=== PATIENT | male | born 1980 | race Two or more races ===

== ENCOUNTER 2017-04-24 17:32 | Emergency (ER) | payer MEDICAID ==
[~2017-04-24] VITALS: Ht 172.7 cm; Wt 101.0 kg
[2017-04-24 18:07] VITALS: Ht 172.7 cm; Wt 101.0 kg
[2017-04-24] MEDS ORDERED: KETOROLAC 30 MG INJ IM STA (19:15)
[2017-04-24] MEDS ORDERED: ONDANSETRON (ODT) 4 MG TAB ODT STA (19:15)
--- NOTE | 2017-04-24 19:36 | ERD ---
ER Documentation Chief Complaint Date/Time DATE: 04/24/17 TIME: 19:31 Chief Complaint LEFT FALNK PAIN , HX OF KIDNEY STONES HPI Patient is a 36-year-old male with past medical history of nephrolithiasis who presents to the emergency department with sudden onset of left severe flank pain 2 hours. Patient does report chills, patient denies any fevers. Patient denies any nausea or vomiting. Patient did not reports dysuria and hematuria. Patient denies any frequency, urgency or hesitancy patient states in the past his kidney stones have with medication only. Patient denies needing to have lithotripsy or any surgical procedures. Patient denies any chest pain, shortness of breath, LOC at this time. ROS All systems reviewed and are negative except as per history of present illness. Medications Home Meds Active Scripts Ondansetron (Ondansetron Odt) 4 Mg Tab.rapdis, 4 MG PO Q6H Y for NAUSEA AND/OR VOMITING, #10 TAB Prov:SARAI YOON-C 04/24/17 Hydrocodone/Acetaminophen ([place] 5-325 Tablet) 1 Each Tablet, 1 TAB PO Q6H Y for PAIN, #7 TAB Prov:SARAI YOON-C 04/24/17 Ibuprofen* (Motrin*) 600 Mg Tab, 600 MG PO Q6, #30 TAB Prov:SARAI YOON-C 04/24/17 Tamsulosin Hcl* (Flomax*) 0.4 Mg Cap.er.24h, 0.4 MG PO BID, #30 CAP Prov:SARAI YOON-C 04/24/17 Reported Medications [None] No Conflict Check 06/30/10 Allergies Allergies: Coded Allergies: No Known Allergies (Verified Allergy, Mild, 06/30/10) PMhx/Soc Medical and Surgical Hx: pt denies Surgical Hx History of Surgery: No Anesthesia Reaction: No Hx Neurological Disorder: No Hx Respiratory Disorders: No Hx Cardiac Disorders: No Hx Psychiatric Problems: No Hx Miscellaneous Medical Probl: Yes (Kidney Stones) Hx Alcohol Use: No Hx Substance Use: No Hx Tobacco Use: No Smoking Status: Never smoker Physical Exam Vitals Vital Signs Date Time Temp Pulse Resp B/P Pulse Ox O2 Delivery O2 Flow Rate FiO2 04/24/17 18:07 98.4 88 19 138/81 98 Physical Exam GENERAL: Well-developed, well-nourished male. Appears in no acute distress. HEAD: Normocephalic, atraumatic. EYES: Pupils are equally reactive bilaterally. EOMs grossly intact. No conjunctival erythema. ENT: Moist mucous membranes. No uvula deviation. No kissing tonsils. NECK: Supple. No meningismus. Normal range of motion of the neck. LUNG: Clear to auscultation bilaterally. No rhonchi, wheezing, rales or coarse breath sounds. HEART: Regular rate and rhythm. No murmurs, rubs or gallops. ABDOMEN: No scars, ecchymosis or rashes noted. Soft, nontender, and nondistended. Positive bowel sounds in all four quadrants. No rebound tenderness , no guarding. (-) McBurney's point tenderness. L sided CVA tenderness. BACK: No midline tenderness. EXTREMITIES: Equal pulses bilaterally. No peripheral clubbing, cyanosis or edema. No unilateral leg swelling. NEUROLOGIC: Alert and oriented. Moving all four extremities without any difficulty. Normal speech. Steady gait. SKIN: Normal color. Warm and dry. No rashes or lesions. Result Diagram: 04/24/17192704/24/171927 Results 24 hrs Laboratory Tests Test 04/24/17 19:28 White Blood Count 12.910^3/ul Red Blood Count 4.9410^6/ul Hemoglobin 14.2g/dl Hematocrit 41.4% Mean Corpuscular Volume 83.8fl Mean Corpuscular Hemoglobin 28.7pg Mean Corpuscular Hemoglobin Concent 34.3g/dl Red Cell Distribution Width 13.2% Platelet Count 11712^3/UL Mean Platelet Volume 10.2fl Neutrophils % 81.6% Lymphocytes % 11.1% Monocytes % 6.0% Eosinophils % 0.5% Basophils % 0.3% Nucleated Red Blood Cells % 0.0/100WBC Neutrophils # 10.610^3/ul Lymphocytes # 1.410^3/ul Monocytes # 0.810^3/ul Eosinophils # 0.110^3/ul Basophils # 0.010^3/ul Nucleated Red Blood Cells # 0.010^3/ul Urine Color LT. YELLOW Urine Clarity CLEAR Urine pH 6.0 Urine Specific [place] 1.025 Urine Ketones NEGATIVE Urine Nitrite NEGATIVE Urine Bilirubin NEGATIVE Urine Urobilinogen 0.2 E.U./dL Urine Leukocyte Esterase NEGATIVE Urine Microscopic RBC 10-25/HPF Urine Microscopic WBC 0-2/HPF Urine Bacteria FEW Urine Hemoglobin 2+ Urine Glucose NEGATIVE% Urine Total Protein NEGATIVE Sodium Level 140mmol/L Potassium Level 4.1mmol/L Chloride Level 105mmol/L Carbon Dioxide Level 25mmol/L Anion Gap 14 Blood Urea Nitrogen 13mg/dl Creatinine 0.81mg/dl Glucose Level 93mg/dl Calcium Level 9.4mg/dl Total Bilirubin 0.3mg/dl Direct Bilirubin 0.00mg/dl Indirect Bilirubin 0.3mg/dl Aspartate Amino Transf (AST/SGOT) 27IU/L Alanine Aminotransferase (ALT/SGPT) 37IU/L Alkaline Phosphatase 94IU/L Total Protein 8.4g/dl Albumin 5.2g/dl Globulin 3.20g/dl Albumin/Globulin Ratio 1.62 Current Medications Medications (Trade) Dose Ordered Sig/Merrill Route PRN Reason Start Time Stop Time Status Last Admin Dose Admin Ketorolac Tromethamine (Toradol) 30 mg ONCE STAT IM 04/24/17 19:15 04/24/17 19:17 DC 04/24/17 19:26 Ondansetron HCl (Zofran Odt) 8 mg ONCE STAT ODT 04/24/17 19:15 04/24/17 19:17 DC 04/24/17 19:26 Procedures/MDM ED COURSE: The patient was stable throughout ED course. I kept the patient and/or family informed of laboratory and diagnostic imaging results throughout the ED course. MEDICATIONS GIVEN: Toradol IM Patient tolerated medication well with no adverse reactions. Patient reported improvement in pain. MEDICAL DECISION MAKING: This is a 36-year-old male with history of nephrolithiasis who presents with left-sided flank pain dysuria and hematuria 2 hours. Vital signs were reviewed. Patient was afebrile. UA showed []. Given that the patient does report a history of kidney stones in the past and denied needing to have any surgical interventions completed, CT imaging was not obtained at this time. CBC showed no evidence of severe anemia. WBC count was noted to be 12.9. CMP showed no evidence of electrolyte abnormalities, severe acidosis, alkalosis, renal failure, or liver disease. BUN and Cr were within normal limits. UA showed 2+ hemoglobin, 10-25 WBC. Given these findings, the patient's presentation is most consistent with nephrolithiasis. I have a much lower clinical concern for UTI, pyelonephritis, appendicitis, diverticulitis, constipation, urethritis. PRESCRIPTIONS: [place] Ibuprofen Tamsulosin. Zofran DISCHARGE: At this time, patient is stable for discharge and outpatient management. Patient advised to drink plenty of fluids. Patient given a copy of all blood work obtained today. Patient advised to follow-up with the urologist on an outpatient basis. See referral list. I have instructed the patient to follow- up with his/her primary care physician in 1-2 days. If symptoms persist, patient may need to see a specialist for further examinations and testing. I have instructed the patient to promptly return to the ER at any time for any new or worsening symptoms including increased increased pain, fever, nausea, vomiting, urinary changes or weakness. The patient and/or family expressed understanding of and agreement with this plan. All questions were answered. Home care instructions were provided. Departure Diagnosis: Primary Impression: Nephrolithiasis Condition: Stable Patient Instructions: Kidney Stone (Urine) Referrals: MIREYA GUEVARA MD,YNES MARKHAM,SUPRIYA BARRAZA,FANNIE CERVANTES [facility] YOU HAVE RECEIVED A MEDICAL SCREENING EXAM AND THE RESULTS INDICATE THAT YOU DO NOT HAVE A CONDITION THAT REQUIRES URGENT TREATMENT IN THE EMERGENCY DEPARTMENT. FURTHER EVALUATION AND TREATMENT OF YOUR CONDITION CAN WAIT UNTIL YOU ARE SEEN IN YOUR DOCTORS OFFICE WITHIN THE NEXT 1-2 DAYS. IT IS YOUR RESPONSIBILITY TO MAKE AN APPOINTMENT FOR FOLOW-UP CARE. IF YOU HAVE A PRIMARY DOCTOR --you should call your primary doctor and schedule an appointment IF YOU DO NOT HAVE A PRIMARY DOCTOR YOU CAN CALL OUR PHYSICIAN REFERRAL HOTLINE AT IF YOU CAN NOT AFFORD TO SEE A PHYSICIAN YOU CAN CHOSE FROM THE FOLLOWING [facility] CLINICS [facility] [address] [facility] [address] [facility] [address] [facility] [address] [facility] [address] [facility]. [facility]. [address] [facility]. [facility] YOU HAVE RECEIVED A MEDICAL SCREENING EXAM AND THE RESULTS INDICATE THAT YOU DO NOT HAVE A CONDITION THAT REQUIRES URGENT TREATMENT IN THE EMERGENCY DEPARTMENT. FURTHER EVALUATION AND TREATMENT OF YOUR CONDITION CAN WAIT UNTIL YOU ARE SEEN IN YOUR DOCTORS OFFICE WITHIN THE NEXT 1-2 DAYS. IT IS YOUR RESPONSIBILITY TO MAKE AN APPOINTMENT FOR FOLOW-UP CARE. IF YOU HAVE A PRIMARY DOCTOR --you should call your primary doctor and schedule and appointment IF YOU DO NOT HAVE A PRIMARY DOCTOR YOU CAN CALL OUR PHYSICIAN REFERRAL HOTLINE AT . IF YOU CAN NOT AFFORD TO SEE A PHYSICIAN YOU CAN CHOSE FROM THE FOLLOWING [facility]: [facility] [address] [place] [address] [facility] [address] [place] [address] [facility] [address] [place] [address] Additional Instructions: Call your primary care doctor TOMORROW for an appointment during the next 1-2 days.See the doctor sooner or return here if your condition worsens before your appointment time. Drink plenty of fluids. Take medication as prescribed. Follow-up with the urologist in the next 1-2 days. See referral information. SARAI YOON PA-C Apr 24, 2017 19:36
[2017-04-24 19:37] LABS: ADD SCAN DIFF NO
[2017-04-24 19:41] LABS: BASOPHILS % 0.3 % (0.0-2.0); EOSINOPHILS # 0.1 10^3/ul (0.0-0.5); EOSINOPHILS % 0.5 % (0.0-7.0); HEMATOCRIT 41.4 % (42.0-52.0); HEMOGLOBIN 14.2 g/dl (14.0-18.0); LYMPHOCYTES # 1.4 10^3/ul (0.8-2.9); LYMPHOCYTES % 11.1 % (15.0-51.0); MEAN CORPUSCULAR HEMOGLOBIN 28.7 pg (29.0-33.0); MEAN CORPUSCULAR HGB CONC 34.3 g/dl (32.0-37.0); MEAN CORPUSCULAR VOLUME 83.8 fl (82.0-101.0); MEAN PLATELET VOLUME 10.2 fl (7.4-10.4); MONOCYTE # 0.8 10^3/ul (0.3-0.9); NEUTROPHIL # 10.6 10^3/ul (1.6-7.5); NEUTROPHILS % 81.6 % (39.0-77.0); PLATELET COUNT 287 10^3/UL (140-415); RED BLOOD COUNT 4.94 10^6/ul (4.70-6.10); RED CELL DISTRIBUTION WIDTH 13.2 % (11.5-14.5); WHITE BLOOD COUNT 12.9 10^3/ul (4.8-10.8)
[2017-04-24 19:46] LABS: ADD UMIC YES; URINE BILIRUBIN (Dip) NEGATIVE (NEGATIVE); URINE BLOOD (Dip) 2+ (NEGATIVE); URINE COLOR LT. YELLOW (YELLOW); URINE GLUCOSE (Dip) NEGATIVE (NEGATIVE); URINE KETONES (Dip) NEGATIVE (NEGATIVE); URINE LEUKOCYTE ESTERASE (Dip) NEGATIVE (NEGATIVE); URINE NITRITE (Dip) NEGATIVE (NEGATIVE); URINE TOTAL PROTEIN (Dip) NEGATIVE (NEGATIVE); URINE UROBILINOGEN (Dip) 0.2 E.U./dL (0.1-1.0)
[2017-04-24 19:49] LABS: ALBUMIN/GLOBULIN RATIO 1.62
[2017-04-24 19:59] LABS: ALBUMIN 5.2 g/dl (3.3-4.9); BILIRUBIN,INDIRECT 0.3 mg/dl (0-1.1); BILIRUBIN,TOTAL 0.3 mg/dl (0.2-1.3); CALCIUM 9.4 mg/dl (8.4-10.2); CREATININE 0.81 mg/dl (0.61-1.24); POTASSIUM 4.1 mmol/L (3.5-5.1); TOTAL PROTEIN 8.4 g/dl (6.1-8.1)
[2017-04-24 20:13] LABS: BACTERIA,URINE FEW
[2017-04-24] MEDS ORDERED: IBUP-1542 PO (20:54)
[2017-04-24] MEDS ORDERED: TAMS-14 PO (20:54)
[2017-04-24] MEDS ORDERED: HYDR-906 PO (20:55)
[2017-04-24] MEDS ORDERED: ONDA4TAB14 PO (20:55)
[2017-04-24 21:11] VITALS: BP 134/69; PULSE 77; RESP 16; TEMP 98.6
== END 2017-04-24 21:13 | disposition home or self-care (01) ==
LOC: FTE 17:32
DX: N20.0 Calculus of kidney (principal)
CPT/HCPCS: 80053; 81001; 85025; 96372; J1885; Z7502; Z7610

== ENCOUNTER 2017-04-25 01:02 | Emergency (ER) | payer SELFPAY ==
[~2017-04-25] VITALS: Ht 172.7 cm; Wt 101.8 kg
[~2017-04-25 01:02] MED LIST: HYDR-906 PO; IBUP-1542 PO; ONDA4TAB14 PO; TAMS-14 PO
[2017-04-25 01:05] VITALS: Ht 172.7 cm; Wt 101.8 kg
== END 2017-04-25 01:10 | disposition left against medical advice (07) ==
LOC: E/R 01:02
DX: Z53.21 Procedure and treatment not carried out due to patient leaving prior to being seen by health care provider (principal)

== ENCOUNTER 2018-08-16 12:01 | Emergency (ER) | END 2018-08-16 12:54 | disposition home or self-care (01) ==

== ENCOUNTER 2018-12-26 11:53 | Emergency (ER) | payer MEDICAID, OTHER ==
[~2018-12-26] VITALS: Ht 167.6 cm; Wt 104.0 kg
[~2018-12-26 11:53] MED LIST changes: +BEN25 PO; +HYDR-4011 PO; -HYDR-906 PO; +PRED20TA PO
[2018-12-26 11:58] VITALS: Ht 167.6 cm; Wt 104.0 kg
[2018-12-26] MEDS ORDERED: AZIT250T PO (12:18)
[2018-12-26] MEDS ORDERED: ALBU18HF INHALATION (12:18)
[2018-12-26] MEDS ORDERED: BENZ-6 PO (12:18)
[2018-12-26 12:38] VITALS: BP 122/65; PULSE 72; RESP 19
--- NOTE | 2018-12-26 16:18 | ERD ---
ER Documentation Chief Complaint Chief Complaint COUGH WITH MILD WHEEZING X 1 MONTH HPI 38-year-old male patient with no significant past medical history presents to ED complaining of cough with wheezing that started imminently for 1 month. Patient reports that he has not taking medications. Denies any fever, chills, nausea, vomiting, chest pain, abdominal pain. Denies any recent traveling. Denies any recent traveling. ROS All systems reviewed and are negative except as per history of present illness. Medications Home Meds Active Scripts Albuterol Sulfate* (Ventolin HFA*) 18 Gm Hfa.aer.ad, 2 PUFF INHALATION Q4H, #1 INHALER Prov:FLAKITO JIMENEZ PA-C 12/26/18 Benzonatate* (Tessalon Perle*) 100 Mg Capsule, 100 MG PO Q8H PRN for COUGH, #20 CAP Prov:FLAKITO JIMENEZ PA-C 12/26/18 Azithromycin* (Zithromax*) 250 Mg Tablet, 250 MG PO .ZPACK DIRECTED, #6 TAB TAKE 500 MG (2 TABS) THE FIRST DAY THEN 250 MG (1 TAB) DAYS 2-5 Prov:FLAKITO JIMENEZ PA-C 12/26/18 Diphenhydramine Hcl* (Benadryl*) 25 Mg Cap, 25 MG PO Q6, #30 CAP Prov:FLAKITO JIMENEZ PA-C 08/16/18 Prednisone* (Prednisone*) 20 Mg Tab, 40 MG PO DAILY for 4 Days, TAB Prov:FLAKITO JIMENEZC 08/16/18 Ondansetron (Ondansetron Odt) 4 Mg Tab.rapdis, 4 MG PO Q6H PRN for NAUSEA AND/OR VOMITING, #10 TAB Prov:SARAI YOON-C 04/24/17 Hydrocodone/Acetaminophen ([place] 5-325 Tablet) 1 Each Tablet, 1 TAB PO Q6H PRN for PAIN, #7 TAB Prov:SARAI YOON-C 04/24/17 Ibuprofen* (Motrin*) 600 Mg Tab, 600 MG PO Q6, #30 TAB Prov:SARAI YOON-C 04/24/17 Tamsulosin Hcl* (Flomax*) 0.4 Mg Cap.er.24h, 0.4 MG PO BID, #30 CAP Prov:SARAI YOON PA-C 04/24/17 Reported Medications [None] No Conflict Check 06/30/10 Allergies Allergies: Coded Allergies: No Known Allergies (Verified Allergy, Mild, 12/26/18) PMhx/Soc Medical and Surgical Hx: pt denies Surgical Hx History of Surgery: No Anesthesia Reaction: No Hx Neurological Disorder: No Hx Respiratory Disorders: No Hx Cardiac Disorders: No Hx Psychiatric Problems: No Hx Miscellaneous Medical Probl: Yes (Kidney Stones) Hx Alcohol Use: No Hx Substance Use: No Hx Tobacco Use: No Smoking Status: Never smoker FmHx Family History: No diabetes, No coronary disease Physical Exam Vitals Vital Signs Date Temp Pulse Resp B/P (MAP) Pulse Ox O2 O2 Flow FiO2 Time Delivery Rate 12/26/18 98.4 72 19 122/65 100 Room Air 12:38 (84) 12/26/18 98.5 92 20 145/69 96 11:58 (94) Physical Exam Const: Bid-szv-wxlvzbmjg, well-nourished. In no acute distress. Head: Atraumatic, normocephalic Eyes: Normal Conjunctiva without injection. No purulent discharge. PERRL. EOMI ENT: Normal external ear. Ear canal without erythema. Tympanic membrane pearly ragland without effusion or bulging. Nasal canal clear with normal turbinates. Moist oropharynx without tonsillar exudates. Non-erythematous pharynx. Uvula midline. No drooling. No trismus. Neck: Full range of motion. No meningismus. No cervical lymphadenopathy. Resp: Clear to auscultation bilaterally. No wheezing, rhonchi, rales, or scrap sorter ckles. No accessory muscle use. No retractions. Cardio: Regular rate and rhythm. No murmurs, rubs or gallops. Abd: Soft, non tender, non distended. Normal bowel sounds. No palpable masses. No rebound tenderness. No guarding. Skin: No petechiae or rashes Back: No midline tenderness. No CVA tenderness. Ext: No cyanosis, or edema. Neur: Awake and alert. Psych: Normal Mood and Affect Procedures/MDM 38-year-old male patient with no significant past medical history presents to the ED complaining of cough. Patient is afebrile and nontoxic-appearing. Chest x-ray was offered to patient at this time however he stated that he wanted to have a trial of medications. This patient presents to the ED with symptoms consistent with bronchitis. Patient's physical exam include lungs which were clear to auscultation and a normal pulse oximetry. There is a low suspicion for pneumonia, pneumothorax, mononucleosis, pulmonary embolism, epiglottitis, otitis media, otitis externa, viral/strep pharyngitis, sinusitis, myocarditis, pericarditis, endocarditis, peritonsillar abscess, mastoiditis, retropharyngeal abscess, meningitis, sepsis, acute abdomen or other emergent conditions. Fluids, rest, and symptomatic treatment are recommended for the management of patient's symptoms. Diagnosis: Cough Discharge medications: Ventolin, Tessalon Perles, Zithromax Follow up with primary care physician in 1-2 days. Instructed patient to return to the ED sooner for any worsening symptoms. Patient's questions were answered. Patient is hemodynamically stable. Patient understood and agreed with discharge plan. Patient discharged stable. Disclaimer: Inadvertent spelling and grammatical errors are likely due to EHR/dictation software use and do not reflect on the overall quality of patient care. Also, please note that the electronic time recorded on this note does not necessarily reflect the actual time of the patient encounter. Departure Diagnosis: Primary Impression: Cough Condition: Stable Patient Instructions: Bronchitis, Antiobiotic Treatment (Adult) Referrals: [facility] YOU HAVE RECEIVED A MEDICAL SCREENING EXAM AND THE RESULTS INDICATE THAT YOU DO NOT HAVE A CONDITION THAT REQUIRES URGENT TREATMENT IN THE EMERGENCY DEPARTMENT. FURTHER EVALUATION AND TREATMENT OF YOUR CONDITION CAN WAIT UNTIL YOU ARE SEEN IN YOUR DOCTORS OFFICE WITHIN THE NEXT 1-2 DAYS. IT IS YOUR RESPONSIBILITY TO M OLGA AN APPOINTMENT FOR FOL- CARE. IF YOU HAVE A PRIMARY DOCTOR --you should call your primary doctor and schedule an appointment IF YOU DO NOT HAVE A PRIMARY DOCTOR YOU CAN CALL OUR PHYSICIAN REFERRAL HOTLINE AT IF YOU CAN NOT AFFORD TO SEE A PHYSICIAN YOU CAN CHOSE FROM THE FOLLOWING [facility] CLINICS [facility] [address] [facility] [address] [facility] [address] [facility] [address] [facility] [address] [facility]. [address] [facility]. [facility] YOU HAVE RECEIVED A MEDICAL SCREENING EXAM AND THE RESULTS INDICATE THAT YOU DO NOT HAVE A CONDITION THAT REQUIRES URGENT TREATMENT IN THE EMERGENCY DEPARTMENT. FURTHER EVALUATION AND TREATMENT OF YOUR CONDITION CAN WAIT UNTIL YOU ARE SEEN IN YOUR DOCTORS OFFICE WITHIN THE NEXT 1-2 DAYS. IT IS YOUR RESPONSIBILITY TO MAKE AN APPOINTMENT FOR FOLOW-UP CARE. IF YOU HAVE A PRIMARY DOCTOR --you should call your primary doctor and schedule and appointment IF YOU DO NOT HAVE A PRIMARY DOCTOR YOU CAN CALL OUR PHYSICIAN REFERRAL HOTLINE AT . IF YOU CAN NOT AFFORD TO SEE A PHYSICIAN YOU CAN CHOSE FROM THE FOLLOWING [facility] INSTITUTIONS: [facility] [address] [place] [address] [facility] [address] [place] [address] [facility] [address] [place] [address] [facility]CIALT[facility] Additional Instructions: Call your primary care doctor TOMORROW for an appointment during the next 2-3 days.See the doctor sooner or return here if your condition worsens before your appointment time. FLAKITO JIMENEZ PA-C Dec 26, 2018 16:18
== END 2018-12-26 12:39 | disposition home or self-care (01) ==
LOC: FTE 11:53
DX: R05 Cough (principal)
CPT/HCPCS: 99283

== ENCOUNTER 2019-03-04 14:44 | Emergency (ER) | payer OTHER ==
[~2019-03-04] VITALS: Wt 100.0 kg
[~2019-03-04 14:44] MED LIST changes: +ALBU18HF INHALATION; +AZIT250T PO; +BENZ-6 PO
[2019-03-04 14:47] VITALS: BP 150/71; PULSE 87; RESP 18
[2019-03-04] MEDS ORDERED: CYCL10TA7 PO (15:40)
[2019-03-04] MEDS ORDERED: NAPR-985 PO (15:40)
[2019-03-04] MEDS ORDERED: HYDR-4011 PO (15:40)
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
== END 2019-03-04 16:07 | disposition home or self-care (01) ==
LOC: FTE 14:44
DX: M54.9 Dorsalgia, unspecified (principal)
CPT/HCPCS: 99283